=== PATIENT | male | born 1975 | race Caucasian/White ===

== ENCOUNTER 2019-03-05 20:40 | Emergency (ER) | payer BC ==
--- NOTE | 2019-03-05 21:11 | CT ---
Exam: Head CT without contrast HISTORY: Trauma. Pain. COMPARISON: none FINDINGS: Hemorrhage: No intraparenchymal hemorrhage or extra-axial hematoma. Brain parenchyma: Cortical goodwin-white matter differentiation is preserved. No mass effect or midline shift. Basilar cisterns are patent Ventricular system: Ventricles and sulci are patent and symmetric. Calvarium: Intact. Sinuses and mastoid air cells: Adequate aeration. IMPRESSION: 1. No intracranial post traumatic sequelae 2. No acute intracranial process.
== END 2019-03-05 21:29 | disposition home or self-care (01) ==
LOC: SCSER 20:40
DX: S06.0X0A Concussion without loss of consciousness, initial encounter (principal); W55.89XA Other contact with other mammals, initial encounter
CPT/HCPCS: 70450